=== PATIENT | female | born 1950 | race Caucasian/White ===

== ENCOUNTER 2021-12-10 09:48 | Outpatient (CLI) | payer MEDICARE, BC, SELFPAY ==
--- OUTSIDE RECORDS SUMMARY | 2021-12-10 09:56 | XMS_ITS | Encounter Summary ---
:1950 Author Organization [facility] Address [address] [place] [address] Care Team Providers Name Role Phone Unavailable Primary Care Provider Unavailable Reason for Referral Outpatient (Routine) - Closed Specialty Diagnoses / Referred By Referred To Cont act Procedures Contact Gastroenterology and Diagnoses [facility]creas [facility] Adriane [address] [place] [address] Referral ID Status Reason Start Date Expiration Date Visits Requ ested Visits Authorized [id number] Closed 06/03/2021 06/03/2022 1 1 ECT MANAGEMENT ADVISOR Encounter Details Date Type Department Care Team Description 06/03/2021 [facility] reas Disease AND CLINICS Adriane Aguilar (HCC) (Primary Dx) [address] [facility] [address] [place] [address] [place], [place] [phone] Social History Tobacco Use Types Packs/Day Years Used Date Smoking Tobacco: Never Assessed Sex Assigned at Date Recorded Not on file documented as of this encounter Plan of Treatment Scheduled Referrals Name Type Priority Associated Order Schedule Diagnoses Gastroenterology & Outpatient Routine Pancreas Disease Expec miya: Hepatology Referral Referral (HCC) 06/03/19 (Approximate), Expires: 08/31/2022 documented as of this encounter Visit Diagnoses Diagnosis Pancreas Disease - Primary documented in this encounter
[2021-12-10 11:10] LABS: Cholesterol* 193 mg/dL (90-199); HDL Cholesterol* 66 mg/dL (>=50); LDL Cholesterol Calculated 99 mg/dL (<100); Triglycerides* 139 mg/dL (40-149)
[2021-12-10 11:50] LABS: Vitamin D 25 Hydroxy* 55 ng/mL (30-80)
== END 2021-12-10 09:49 | disposition home or self-care (01) ==
LOC: NFLDREF 09:49
PROVIDERS: PCP Family Medicine; Visit Provider Family Medicine
DX: M85.80 Other specified disorders of bone density and structure, unspecified site (principal); Z13.6 Encounter for screening for cardiovascular disorders
CPT/HCPCS: 80061; 82306

== ENCOUNTER 2021-12-15 10:50 | Outpatient (CLI) | payer MEDICARE, BC, SELFPAY ==
--- OUTSIDE RECORDS SUMMARY | 2021-12-15 10:56 | XMS_ITS | Encounter Summary ---
:1950 Author Organization [facility] Address [address] [place] [address] Care Team Providers Name Role Phone Unavailable Primary Care Provider Unavailable Encounter Details Date Type Department Care Team Description 06/03/2021 Ancillary Procedure Department of Gastroenterology Social History Tobacco Use Types Packs/Day Years Used Date Smoking Tobacco: Never Assessed Sex Assigned at Date Recorded Not on file documented as of this encounter Plan of Treatment Not on filedocumented as of this encounter Procedures Procedure Name Priority Date/Time Associated Comments Diagnosis GASTROENTEROLOGY IMAGE Routine 06/03/2021 12:05 R esults for this EXAM AM TURNING MACHINE OPERATOR HELPER procedure are i n the results section. documented in this encounter Results Unspecified-Gastroenterology Image Exam (06/03/2021 12:05 AM TURNING MACHINE OPERATOR HELPER) Specimen (Source) Anatomical Location Collection Method / Collectio n Time Received Time / Laterality Volume Narrative IIMS - 06/03/2021 12:13 PM TURNING MACHINE OPERATOR HELPER This order has been created and auto-finalized to support the import of images acquired without order. The clini [place] documentation to support these images can be found on the encounter lyubov t produced images. Provider Not In System IMG NON RAD IMAGING PROCEDUR ES Performing Organization Address City/State/ZIP Code Phon e Number IIMS IIMS NA documented in this encounter Visit Diagnoses Not on filedocumented in this encounter
--- OUTSIDE RECORDS SUMMARY | 2021-12-15 10:56 | XMS_ITS | Clinical Summary ---
:1950 Author Organization [facility] [place] [address] Care Team Providers Name Role Phone Ruby Chiang MD Primary Care Provider Unavailable Allergies Active Allergy Reactions Severity Noted Date Comments Sulfa (Sulfonamide Antibiotics) 7 rash from a sulfa cream Medications Medication Sig Dispensed Refills Start Date End Date Status NEXIUM 40 MG CAP take 1 capsule 90 3 04/18/2007 Active (40 mg) by oral route once daily cyclobenzaprine Take 1 tablet by 36 tablet 2 05/17/2010 Active (FLEXERIL) 10 mg tablet mouth every 8 hours if needed for Muscle Spasm. miscellaneous medical As directed. 1 Units 0 11/15/2010 Active supply (CERVICAL Diaz cervical TRACTION) [facility] home traction Ciclopirox 0.77 % Apply to affected 1 jar 1 03/13/2013 Active gelIndications: toenails for 6-12 Dermatophytosis of nail months once daily. sertraline (ZOLOFT) 50 Take 1 tablet by 0 05/07/2015 Active mg tablet mouth once daily. capsaicin-methyl Apply topically 10 mL 0 05/07/2015 Active bradley-menthol (NEW to affected TEROCIN) 0.025-25-10 % area(s). 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 07/23/2008 Bursitis of hip 07/23/2008 Onychomycosis 04/08/2008 Immunizations Name Administration Dates Next Due AMB Influenza, IIV3 (Age >=3 years)(Flu Clinic Only) 012 Social History Tobacco Use Types Packs/Day Years Used Date Never Smoker Smokeless Tobacco: Never Used Tobacco Cessation: Counseling Given: Yes Alcohol Use Standard Drinks/Week Comments Not Asked 0 (1 standard drink = 0.6 oz pure alcoho l) Sex Assigned at Date Recorded Not on file Obstetrics History Last Filed Vital Signs Vital Sign Reading Time Taken Comments Blood Pressure 136/73 05/07/2015 2:20 PM METAL HANGING HELPER Pulse 98 05/07/2015 2:20 PM METAL HANGING HELPER Temperature 36.7 ??C (98 ??F) 05/07/2015 2:20 PM METAL HANGING HELPER Respiratory Rate - - Oxygen Saturation 98% 05/07/2015 2:20 PM METAL HANGING HELPER Inhaled Oxygen Concentration - - Weight 76.8 kg (169 lb 6 oz) 05/07/2015 2:20 PM METAL HANGING HELPER Height 168 cm (5' 6.14) 05/07/2015 2:20 PM METAL HANGING HELPER Body Mass Index 27.22 05/07/2015 2:20 PM METAL HANGING HELPER Plan of Treatment Health Maintenance Due Date Last Done Comments COVID-19 vaccine series (#1) 1950 Tdap 1960 Depression screening for age 12+ 1961 Hepatitis C screening for age 18-79 07/01/1967 Tetanus booster 1969 Lipids for age 45-75 1994 Zoster (shingles) series for age 50+ 07/01/1999 (1 of 2) Mammogram for age 45-75 06/03/2009 06/03/2008, 02/27/2007 DEXA/DXA scan for age 65+ 2014 Pneumococcal series for age 65+ (1 - 2014 PCV) BMI (ht and wt on same day) for age 0105/07/2016 05/07/2015 18+ Influenza for age 65+ 12/16/2021 02/13/2012 Colonoscopy through age 75 03/22/2022 03/22/2012, 2, 03/13/2007 Results Not on filefrom Last 3 Months Insurance Payer Benefit Plan / Subscriber ID Effective Dates Phone Addre ss Type Group MEDICARE - PB MEDICARE PB [id number] 2014-Present ATTN : CLAIMS USE ONLY ONLY [address] [place] [address] [employer] [place] [id number] 2015-Present [address] [address] [place] [address] Care Teams Bankruptcy Judge Relationship Specialty Start Date End Date Ruby Chiang MD PCP - General Family Practice 11/30/11
--- OUTSIDE RECORDS SUMMARY | 2021-12-15 10:56 | XMS_ITS | Encounter Summary ---
:1950 Author Organization [facility] Address [address] [place] [address] Care Team Providers Name Role Phone Unavailable Primary Care Provider Unavailable Reason for Visit Reason Comments Pancreas Previsit Preparation Encounter Details Date Type Department Care Team Description 06/07/2021 Clinical Division of Nely Guardado Pancreas; Previ sit Communication [facility] [address] [facility] [address] [place] [address] [place] [address] Social History Tobacco Use Types Packs/Day Years Used Date Smoking Tobacco: Never Assessed Sex Assigned at Date Recorded Not on file documented as of this encounter Plan of Treatment Not on filedocumented as of this encounter Visit Diagnoses Not on filedocumented in this encounter
--- OUTSIDE RECORDS SUMMARY | 2021-12-15 10:56 | XMS_ITS | Encounter Summary ---
:1950 Author Organization [facility] Address [address] [place] [address] Care Team Providers Name Role Phone Unavailable [...] Associated Comments Diagnosis GASTROENTEROLOGY IMAGE Routine 06/03/2021 12:00 R esults for this EXAM AM GROUP LEADER SEMICONDUCTOR TESTING procedure are i n the results section. documented in this encounter Results Unspecified-Gastroenterology Image Exam (06/03/2021 12:00 AM GROUP LEADER SEMICONDUCTOR TESTING) Specimen (Source) Anatomical Location Collection Method / Collectio n Time Received Time / Laterality Volume Narrative IIMS - 06/03/2021 12:05 PM GROUP LEADER SEMICONDUCTOR TESTING This order has been created and auto-finalized [...]
--- OUTSIDE RECORDS SUMMARY | 2021-12-15 10:56 | XMS_ITS | Encounter Summary ---
:1950 Author Organization [facility] Address [address] [place] [address] Care Team Providers Name Role Phone Unavailable Primary Care Provider Unavailable Reason for Visit Reason Comments Follow-up Encounter Details Date Type Department Care Team Description 11/30/2021 Documentation Division of Gastroenterology Ladi combs, Follow-up in [facility] Ana España M.D. [address] [place] [address] [place], [place] [phone] (Wo rk) Social History Tobacco Use Types Packs/Day Years Used Date Smoking Tobacco: Never Assessed Sex Assigned at Date Recorded Not on file documented as of this encounter Progress Notes Ana Ulloa M.D. - 11/30/2021 12:04 PM CDT Ms. Craft was called today to discuss MRCP results. She is being doing well. No new symptoms or complain since I last saw her at clinics. Her MRCP showed a focal cystic lesion at the tip of the pancreatic tail demonstrating cluster of multiple small cysts with thin internal intervening septa. It measures approximately 1.8 x 1.7 x 2.1 cm previously 1.8 x 1.6 x 2.0 cm from outside dated 06/01/2021 MRI. Overall the cyst has remained stable in size and with reassuring features that favors a serous cystadenoma. Ms. Craft was re-oriented that the risk of malignancy with this type of pancreas cyst is extremely low (less than 0.1%) reason why surveillance with further imaging is not recommended. At this time, Ms. Craft is completely asymptomatic but she was oriented to contact me through the portal if shedevelops any concerning symptoms such as jaundice, unintentional weight loss, abdominal pain radiating to the back, nausea/vomiting not explained by other etiologies. All questions were addressed and answered to the best of my knowledge. Patient understood and agreed with plan documented in this encounter Plan of Treatment Not on filedocumented as of this encounter Visit Diagnoses Not on filedocumented in this encounter
--- OUTSIDE RECORDS SUMMARY | 2021-12-15 10:56 | XMS_ITS | Encounter Summary ---
:1950 Author Organization [facility] Address [address] [place] [id number] Care Team Providers Name Role Phone Unavailable Primary Care Provider Unavailable Reason for Referral MRI/CAT/PET Scan (Routine) - Closed Specialty Diagnoses / Procedures Referred By Contact Refer red To Contact Radiology Diagnoses Cyst Pancreas [facility] Abdomen MRCP without and with IV Contrast M.D. [address] [place] [phone] Referral ID Status Reason Start Date Expiration Date Visits Requ ested Visits Authorized [id number] Closed 08/30/2021 08/30/2022 1 1 Reason for Visit MRI/CAT/PET Scan (Routine) - Closed Specialty Diagnoses / Procedures Referred By Contact Refer red To Contact Radiology Diagnoses Cyst Pancreas [facility] Procedures MR Abdomen MRCP without and with IV Contrast M.D. [address] [place] [phone] Referral ID Status Reason Start Date Expiration Date Visits Requ ested Visits Authorized [id number] Closed 08/30/2021 08/30/2022 1 1 Encounter Details Date Type Department Care Team Description 11/26/2021 Hospital Encounter Department of Tuan Ulloa Radiology, Pao España M.D. [facility], in [place], [address] [place], [place] [address] [facility] [address] [place], [place] [phone] (Work) [phone] Social History Tobacco Use Types Packs/Day Years Used Date Smoking Tobacco: Never Assessed Sex Assigned at Date Recorded Not on file documented as of this encounter Medications at Time of Discharge Medication Sig Dispensed Refills Start Date End Date cholecalciferol, vitamin Daily 0 02/20/2018 D3, 25 mcg (1,000 Unit) tablet esomeprazole (NexIUM) 40 Daily 0 04/18/[address] capsule sertraline (ZOLOFT) 100 mg Take 100 mg by mouth 0 07/04/2021 tablet daily. traMADoL (ULTRAM) 50 mg Qhs as needed 0 2 tablet triamcinolone (KENALOG) Twice A Day 0 01/27/2021 0.1 % ointment valACYclovir (VALTREX) As Directed 0 07/09/2020 1000 mg tablet Vitron-C 65 mg iron- 125 Take 1 tablet by 0 06/[address] tablet mouth daily. documented as of this encounter Plan of Treatment Not on filedocumented as of this encounter Procedures Procedure Name Priority Date/Time Associated Comments Diagnosis MR ABDOMEN MRCP RAD - Routine 11/26/2021 2:02 Cyst Pancreas Results for this WITHOUT AND WITH (most inpatients PM CDT procedu re are in IV CONTRAST and all the results outpatients) section. documented in this encounter Results MR Abdomen MRCP without and with IV Contrast (11/26/2021 2:02 PM CDT) Anatomical Region Laterality Modality Abdomen, Abdominal RST LOS, Abdominal ARZ LOS, N/A Magnetic Resonance Abdominal FLA LOS Specimen (Source) Anatomical Collection Method Collection Time Re ceived Time Location / / Volume Laterality 11/26/2021 1:21 PM CDT Impressions 11/26/2021 3:08 PM CDT Similar to very slight interval increase in size of pancreatic tail cystic lesion (compared to outside MRI from 06/06/2021) demonstrate features that favor a serous cystadenoma. Narrative 11/26/2021 3:08 PM CDT EXAM: ??MR ABDOMEN MRCP WITHOUT AND WITH IV CONTRAST 3D maximum intensity projections/volume renderings were created on an independent workstation as ordered by the treating provider and rev iewed by the radiologist for biliary and pancreatic duct visualization. COMPARISON: ??Outside CT from 05/20/2021 a nd MRI from 06/01/2021. FINDINGS: Redemonstration of a focal cystic lesion at the tip of the pancreatic tail demonstrating cluster of multiple small cysts with thin internal intervening septa and wall that enhance on delayed postcontrast images. This cystic lesion measures approximately 1.8 x 1.7 x 2.1 cm (AP by transverse by craniocaudal) previously 1.8 x 1.6 x 2.0 cm from outside dated 06/01/2021 MRI. Possible tiny sidebranch IPMN versus foc al ductal ectasia at the pancreatic head (series 4 image 43). The pancreas otherwise largely savannah ins its intrinsic T1 hyperintensity and enhances homogenously. No pancreatic ductal dilat ion. Diffuse hepatic steatosis. No suspicious hepatic lesion. Spleen measures up to 13.6 cm in craniocaudal dimension and demonstrates a suspected small inferior pole hemangioma. The gallbladder, adrenal glands, and kidneys are unremark able. No biliary ductal dilation. Moderate to large hiatal hernia. No bowel obstruction, where imag ed. Colonic diverticulosis without diverticulitis. No suspicious lymphadenopathy. No drainable fluid collection. Procedure Note Antonio Walters D.O. - 11/26/2021 EXAM: MR ABDOMEN MRCP WITHOUT AND WITH I V CONTRAST 3D maximum intensity projections/volume renderings were created on an independent workstation as ordered by the treating provider and rev iewed by the radiologist for biliary and pancreatic duct visualization. COMPARISON: Outside CT from 05/20/2021 and MRI from 06/01/2021. FINDINGS: Redemonstration of a focal cystic lesion at the tip of the pancreatic tail demonstrating cluster of multiple small cysts with thin internal intervening septa and wall that enhance on delayed postcontrast images. This cystic lesion measures approximately 1.8 x 1.7 x 2.1 cm (AP by transverse by craniocaudal) previously 1.8 x 1.6 x 2.0 cm from outside dated 06/01/2021 MRI. Possible tiny sidebranch IPMN versus foc al ductal ectasia at the pancreatic head (series 4 image 43). The pancreas otherwise largely savannah ins its intrinsic T1 hyperintensity and enhances homogenously. No pancreatic ductal dilat ion. Diffuse hepatic steatosis. No suspicious hepatic lesion. Spleen measures up to 13.6 cm in craniocaudal dimension and demonstrates a suspected small inferior pole hemangioma. The gallbladder, adrenal glands, and kidneys are unremark able. No biliary ductal dilation. Moderate to large hiatal hernia. No bowel obstruction, where imag ed. Colonic diverticulosis without diverticulitis. No suspicious lymphadenopathy. No drainable fluid collection. IMPRESSION: Similar to very slight interval increase in size of pancreatic tail cystic lesion (compared to outside MRI from 06/06/2021) demonstrate features that favor a serous cystadenoma. Ana RAWLS MRI PROCEDURES documented in this encounter Visit Diagnoses Diagnosis Cyst Pancreas documented in this encounter Administered Medications Inactive Administered Medications - up to 3 most recent administrations Medication Order MAR Action Action Date Dose Rate Site gadobutrol injection 0.01-30 mL Given 11/26/2021 1:40 PM CDT 8 m L (GADAVIST) 0.01-30 mL, intravenous, Once in imaging, contrast, Starting on Mon11/26/21 at 1227, For 1 dose, Imaging Protocol Orders, Dose per Radiant Medication Guidelines Intrathecal doses greater than 0.25 mL not recommended. documented in this encounter
--- OUTSIDE RECORDS SUMMARY | 2021-12-15 10:56 | XMS_ITS | Encounter Summary ---
:1950 Author Organization [facility] Address [address] [place] [address] Care Team Providers Name Role Phone Unavailable Primary Care Provider Unavailable Reason for Referral Outpatient (Routine) - Closed Specialty Diagnoses / Referred By Referred To Cont act Procedures Contact Gastroenterology and Diagnoses [facility]creas [facility] Adriane [address] [place] [address] Referral ID Status Reason Start Date Expiration Date Visits Requ ested Visits Authorized [id number] Closed 06/03/2021 06/03/2022 1 1 E PRESS OPERATOR Encounter Details Date Type Department Care Team Description 06/03/2021 [facility] reas Disease AND CLINICS Adriane Aguilar (HCC) (Primary Dx) [address] [facility] [address] [place] [address] [place], [place] [phone] Social History Tobacco Use Types Packs/Day Years [...]
--- OUTSIDE RECORDS SUMMARY | 2021-12-15 10:56 | XMS_ITS | Encounter Summary ---
:1950 Author Organization [facility] Address [address] [place] [address] Care Team Providers Name Role Phone Unavailable Primary Care Provider Unavailable Reason for Referral MRI/CAT/PET Scan (Routine) - Closed Specialty Diagnoses / Procedures Referred By Contact Refer red To Contact Radiology Diagnoses Cyst Pancreas [facility] Procedures MR Abdomen MRCP without and [place] [address] Referral ID Status Reason Start Date Expiration Date Visits Requ ested Visits Authorized [id number] Closed 08/30/2021 08/30/2022 1 1 Reason for Visit Outpatient (Routine) - Closed Specialty Diagnoses / Referred By Referred To Cont act Procedures Contact Gastroenterology and Diagnoses Pancreas Disease [facility] Hepatology Adriane [address] [place] [address] Referral ID Status Reason Start Date Expiration Date Visits Requ ested Visits Authorized [id number] Closed 06/03/2021 06/03/2022 1 1 Encounter Details Date Type Department Care Team Description 08/30/2021 Comprehensive Visit Division of Aba Chatterjee M.D. [address] [place] [address] Cyst Pancreas (Primary Dx); Gastroenterology in Ana Ulloa M.D. [address] [place] [address] Pancreas Disease [place], [place] [address] [place] [address] Social History Tobacco Use Types Packs/Day Years Used Date Smoking Tobacco: Never Assessed Sex Assigned at Date Recorded Not on file documented as of this encounter Last Filed Vital Signs Vital Sign Reading Time Taken Comments Blood Pressure 135/76 08/30/2021 12:41 PM CDT Pulse 84 08/30/2021 12:41 PM CDT Temperature - - Respiratory Rate - - Oxygen Saturation - - Inhaled Oxygen Concentration - - Weight 71.1 kg (156 lb 12 oz) 08/30/2021 12:41 PM CDT Height - - Body Mass Index - - documented in this encounter Consult Notes nAa Ulloa M.D. - 08/30/2021 1:00 PM CDT Pancreas Clinic Outpatient Consultation SUBJECTIVE Shantell Craft [phone] DATE OF CONSULTATION: 08/30/2021 REFERRING PHYSICIAN: Lauren Chatterjee M.D. CHIEF COMPLAINT/REASON FOR CONSULT Cyst Pancreas [K86.2] HISTORY OF PRESENT ILLNESS Ms. Craft is a 71 year old female who is being seen in pancreas clinic today after found incidentally with a pancreatic cyst. Patient is overall healthy with past medical history pertinent for OA, colon polyps and HTN. Ms. Craft was found on routine labs 04/2021 with low hemoglobin level (6.5 mg/dl ) for which she underwent workup outside [facility] including a CT and MRI where a lobulated multi cyst at the tail of the pancreas measuring 1.8 cm was identified with features consistent with serous cystic neoplasm. Shedenies prior history of acute pancreatitis. She denies itching, yellow discoloration of the skin, abdominal pain, nausea, vomits, weight loss. No family history of pancreatic cancer. Lifelong non-smoker. Drinks socially. Regarding her microcytic anemia she was completely asymptomatic when she was found with low hemoglobin level. She denies any sign or symptoms suggestive of previous or active GI bleeding such as black stools, bright red blood per rectum, hematemesis. She also denies changes in her normal bowel habits,thin stools, nausea, vomiting, abdominal pain, weight loss. EGD 05/27/2021 essentially unremarkable with negative duodenum as well as gastric biopsies. She has history of colon polyps, undergoing surveillance every 3 years with last colonoscopy done last year were apparently benign polyps were removed.She was evaluated by a local filler and trimmer and after blood workup was performed she was told that everything was normal and was prescribed oral iron. Last CBC with hemoglobin on increasing trend to approximately 11 mg/dl. REVIEW OF SYSTEMS All other systems reviewed and negative unless mentioned in the history of present illness, patient provided information verbally HISTORY REVIEW The following portions of the patient's history were reviewed verbally allergies, current medications, family history, medical history, social history and surgical history OBJECTIVE Vital Signs: BP 135/76 Pulse 84 Wt 71.1 kg PHYSICAL EXAMINATION General: Sitting comfortably in no acute distress. Psychiatric: Awake, alert and oriented. Skin: No obvious rashes. Eyes: Sub conjunctiva pink. No icterus Mouth: Moist mucous membranes Abdomen: Soft, nontender and nondistended. No hepatosplenomegaly. Extremities: No clubbing, cyanosis, or edema ASSESSMENT / PLAN 1. Pancreas cyst Patient found incidentally with a pancreatic cyst while undergoing anemia workup. MRI/MRCP 06/01/2021one outside [place] showed a lobulated multi cyst at the tail of the pancreas measuring 1.8 cm with features consistent with serous cystic neoplasm. She denied history of acute pancreatitis, jaundice, abdominal pain, nausea, vomiting, pruritis, weight loss. Non-diabetic. No family history of pancreatic cancer. Lifelong non-smoker. Drinks socially. Patient is completely asymptomatic with no worrisome signs/sympotms. She was explained that if this pancreatic cyst is a true serous cystadenoma (SCA) then the risk of of malignancy is extremely low (less than 0.1%) reason why surveillance with further imaging is not recommended. Will repeat MRCP here at [place] in mid- which is approximately 6 months after her last MR to further evaluate any interval change and to further confirm if there are classicimaging finding consistent with SCA. If SCA is confirmed then the patient was explained that no further surveillance is indicated. If not classic features of SCA then we can consider EUS +/- FNA to further characterize the cyst and establish surveillance. Will follow up results and contact the patientby phone once they are available. 2. Microcytic Anemia Patient completely asymptomatic when she was found with low hemoglobin level. She denied any sign orsymptoms suggestive of previous or active GI bleeding such as black stools, bright red blood per rectum, hematemesis. She also denied alarming symptoms such as changes in her normal bowel habits, thin stools, abdominal pain, weight loss. EGD 05/27/2021 essentially unremarkable findings with negative duodenum as well as gastric biopsies. She has history of colon polyps, undergoing surveillance every 3 years with last colonoscopy done last year were apparently benign polyps were removed. She was evaluated by a local filler and trimmer and after blood workup was performed she was told that everything was normal and was prescribed oral iron. Last CBC with hemoglobin on increasing trend to approximately 11 mg/dl. She will have follow up with ther filler and trimmer next weekend with new labs. Case seen with Dr. Mchugh. BILLIN minutes spent in a combination of the following activities: visit with the patient; reviewing records; interpreting test results; discussing plans with the patient and/or family; discussingand coordinating care with other team members and communicating / reviewing care plan with local provider(s). Ana Ulloa M.D. 08/30/2021 Associated attestation - Mynor Mchugh M.D. - 08/30/2021 3:27 PM CDT [facility] Pancreas Clinic Outpatient Consultation Date of Consultation: 08/30/2021 Referring Physician: Lauren Chatterjee M.D. This is a supervisory note for Ana Ulloa M.D. . I have reviewed the available records, interviewed and examined the patient. I agree with the chief complaint, history of present illness,past medical and surgical history, medications, physical examination, and impression/plan as outlined in Ana Ulloa M.D. 's note dated today. Chief Complaint/Reason for Consult: Cyst Pancreas [K86.2] History of Present Illness: Ms. Craft is a very pleasant 71 y.o. female who was incidentally found to have a lobulated multi-cystic lesion in the tail the pancreas measuring 1.8 cm. The imaging features are highly suggestive of aserous cystic neoplasm. She denies prior history of acute pancreatitis or symptoms of pancreatic related disease. She denies a family history of pancreas cancer. Of note, the patient has been noted to have iron deficiency anemia for which she has been seeing a filler and trimmer. She was started on iron supplementation and had a recent endoscopic workup that was negative. Assessment/Plan: #1 Cyst Pancreas #2 Pancreas Disease Ms. Craft is a very pleasant 71 y.o. female who presents for evaluation and management of Cyst Pancreas [K86.2]. We discussed that imaging was most consistent with a serous cystadenoma she remains asymptomatic at this time. Recommendations: Plan for repeat MRI/MRCP 6 months from prior (due around November 2021). If that is stable, would recommend no further workup if the imaging is classic for a serous cystadenoma. If imaging is not diagnostic for a serous cystadenoma, then may consider surveillance. She will follow-up with her filler and trimmer regarding her anemia. Follow up recommendations: Telephone call with Dr. Varela after MRI/MRCP. BILLIN minutes spent in a combination of the following activities: visit with the patient; reviewing records; interpreting test results; discussing plans with the patient and/or family; discussingand coordinating care with other team members and communicating / reviewing care plan with local provider(s). All of the patient's questions were addressed during this visit. Mynor Mchugh M.D. 08/30/2021 documented in this encounter Plan of Treatment Scheduled Orders Name Type Priority Associated Diagnoses Order S chedule Creatinine with Estimated Lab Routine Cyst Pancreas E xpected: 11/28/2022 GFR (Approximate), Expires: 11/30/2022 documented as of this encounter Results MR Abdomen MRCP without [...] features that favor a serous cystadenoma. Ana Ulloa M.D. [facility] MRI PROCEDURES documented in this encounter Visit Diagnoses Diagnosis Cyst Pancreas - Primary Pancreas Disease Cyst Pancreas documented in this encounter
--- OUTSIDE RECORDS SUMMARY | 2021-12-15 10:56 | XMS_ITS | Encounter Summary ---
:1950 Author Organization [facility] Address [address] [place] [address] Care Team Providers Name Role Phone Unavailable Primary Care Provider Unavailable Reason for Visit Reason Comments Pancreas Cyst Previsit Preparation Encounter Details Date Type Department Care Team Description 08/30/2021 Documentation Division of Ricki Gerard (Cyst ); Gastroenterology in Lashay España, Previsit Preparation [place], [place] Ph.D., R.N. [address] [facility] [address] [place] [address] [place], [place] [phone] [address] Social History Tobacco Use Types Packs/Day Years Used Date Smoking Tobacco: Never Assessed Sex Assigned at Date Recorded Not on file documented as of this encounter Progress Notes Lashay Gerard, Ph.D., R.N. - 08/30/2021 11:59 PM CDT PANCREAS PRE-CLINIC VISIT NOTE #: [phone] Date of : 1950 (71 y.o.) Name: Shantell Craft Pancreas Provider/Appointment Date Dr. Chel Guardado on August 30, 2021 at 1:00 p.m. Indication: Pancreas Cyst History: I spoke with Shantell Craft on 08/05/2021 to review her health history and available records prior to her upcoming visit in the Pancreas Clinic. Shantell's hemoglobin was found to be < 6.0 during a pre-op evaluation. Upper endoscopy and imaging did not identify a cause for her anemia. CT imaging revealed a cystic lesion in her pancreas.She denies any GI or abdominal symptoms other than noting some softer stools in past months and loose stools since starting an iron supplement. She is keen to know more about her pancreas cyst and what type of care she will need moving forward. Is the patient provider referred? Yes, Dr. Lauren Chatterjee Is this visit a second opinion (i.e. have they already seen a make up worker?) No Pancreas or liver biopsy/FNA/brushing: None Imaging: Requested? Yes Received? Yes, in [facility] Interpretation needed? Pending team review 06/01/2021 MRI Abdomen w/wo Contrast IMPRESSION: 1.8 cm lobulated multi cystic lesion in the pancreatic tail with imaging features most consistent with serous cystic neoplasm. Mild hepatic steatosis. 05/20/2021 CT Abdomen Pelvis w/ Contrast IMPRESSION: Subtle area of decreased attenuation within the pancreatic tail measuring 1.6 cm. 6.3 cmhiatal hernia. Extensive sigmoid diverticulosis without diverticulitis. Mild hepatic steatosis. Prior procedures within 18 months: EGD 05/27/2021: Regular Z-line, 5 cm hiatal hernia, no evidence of erosion, salmon colored mucosa, stricture or ulcerations in the esophagus. Mildly erythematous mucosa w/o bleeding in the prepyloric region of stomach. Biopsied. Entire duodenum normal. Biopsied. Multiple small semi-sessile polyps with no bleeding and no stigmata of recent bleeding found in the gastric body. Labs: 05/13/2021 Alkaline Phosphatase: 82 U/L AST: 22 U/L ALT: 14 U/L Bilirubin: 0.4 mg/dL Creatinine: 0.7 mg/dL GFR:> 60 Ca 19-9: Not assessed Prior abdominal surgery: None Past medical history: GERD, osteopenia, colonic polyps (last colonoscopy 01/2021), osteoarthritis, depression, primary hypertension, persistent lymphocytosis, acute anemia, tubular adenoma of colon. Personal history of pancreaticobiliary benign or malignant disease (y/n) and if so, please list: None Use of blood thinners: None Severe cardiac or pulmonary disease (Pacemaker?): None Current symptoms: None documented in this encounter Plan of Treatment Not on filedocumented as of this encounter Visit Diagnoses Not on filedocumented in this encounter
--- OUTSIDE RECORDS SUMMARY | 2021-12-15 10:56 | XMS_ITS | Clinical Summary ---
:1950 Author Organization [facility] Address [address] [place] [address] Care Team Providers Name Role Phone Unavailable Primary Care Provider Unavailable Source Comments Patient records contain information from all sites at [facility]. For routine questions regarding patient records, call [phone] during business hours, M-F 8:00 AM - 5:00 PM Central Time. Record requests for emergency care only can be directed to [phone] at any time.[facility] Allergies Active Allergy Reactions Severity Noted Date Comments Sulfa (Sulfonamide Antibiotics) Rash High 7 rash from a sulfa cream Medications Medication Sig Dispensed Refills Start Date End Date Status valACYclovir (VALTREX) As Directed 0 07/09/2020 Active 1000 mg tablet triamcinolone (KENALOG) Twice A Day 0 01/27/2021 Active 0.1 % ointment traMADoL (ULTRAM) 50 mg Qhs as needed 0 05/14/2021 Active tablet sertraline (ZOLOFT) 100 Take 100 mg by 0 07/04/2021 Active mg tablet mouth daily. Vitron-C 65 mg iron- Take 1 tablet by 0 06/02/[address] tablet mouth daily. esomeprazole (NexIUM) Daily 0 04/18/[address] capsule cholecalciferol, Daily 0 02/20/2018 Ac tive vitamin D3, 25 mcg (1,000 Unit) tablet Encounters Date Type Specialty Care Team Description 11/30/2021 Documentation Gastroenterology and Vikram Ulloa ow-up Hepatology Ana España M.D. 11/26/2021 Hospital Encounter Radiology Laila, Cyst Pa ncrananda España M.D. from Last 3 Months Social History Tobacco Use Types Packs/Day Years Used Date Smoking Tobacco: Never Assessed Sex Assigned at Date Recorded Not on file Last Filed Vital Signs Vital Sign Reading Time Taken Comments Blood Pressure 135/76 08/30/2021 12:41 PM CDT Pulse 84 08/30/2021 12:41 PM CDT Temperature - - Respiratory Rate - - Oxygen Saturation - - Inhaled Oxygen Concentration - - Weight 71.1 kg (156 lb 12 oz) 08/30/2021 12:41 PM CDT Height - - Body Mass Index - - Plan of Treatment Health Maintenance Due Date Last Done Comments Bone Density Scan (Osteoporosis 1950 Screen) CT Colonography 1950 Cologuard 1950 Colonoscopy 1950 Colorectal Cancer Screening 1950 FIT 1950 Fasting Glucose for Diabetes 1950 Screening Hepatitis C Screening 1950 Mammogram 1950 DTaP,Tdap,and Td Vaccines (2 - Td 06/23/2020 06/23/2010, or Tdap) COVID-19 Vaccine (2 - Pfizer 02/11/2021 01/21/2021 series) Depression Screening (Annual 04/17/2021 PHQ-2) Influenza Vaccine (#1) 2022 01/13/2021, 01/24/2020, 01/21/2020, Additional history exists Pneumococcal vaccine (65+ years) Completed 03/23/2016, 04/2014 Zoster Vaccines Completed 12/19/2018, 10/15/2018, 10/08/2018, Additional history exists Fall Risk Screen (Annual) Completed 11/26/2021 Procedures Procedure Name Priority Date/Time Associated Comments Diagnosis MR ABDOMEN MRCP RAD - Routine 11/26/2021 2:02 Cyst Pancreas Results for this WITHOUT AND WITH (most inpatients PM CDT procedu re are in IV CONTRAST and all the results outpatients) section. from Last 3 Months Results MR Abdomen MRCP without and with [...] favor a serous cystadenoma. Ana Ulloa M.D. IMG MRI PROCEDURES from Last 3 Months Insurance Payer Benefit Plan Subscriber ID Effective Phone Address Typ e / Group Dates MEDICARE MEDICARE A [id number] 2014-Prese [address] [place] [address] [facility] [id number] 2015-Prese [phone] [address] Indemnity [employer] [address] [place] [address] [phone] (Work)
[2021-12-15 13:08] LABS: Albumin* 4.3 g/dL (3.3-5.0); Chloride* 104 mmol/L (96-114); Sodium* 141 mmol/L (135-149)
[2021-12-15 13:11] LABS: Alanine Aminotransferase* 21 U/L (4-35); Alkaline Phosphatase* 96 U/L (40-150); Aspartate Amino Transferase* 22 U/L (12-35); Bilirubin Total* 0.6 mg/dL (0.1-1.5); Blood Urea Nitrogen* 21 mg/dL (7-30); Carbon Dioxide* 27 mmol/L (20-32); Creatinine* 0.8 mg/dL (0.5-1.5); Estimated Glomerular Filt Rate 78 ml/min; Glucose* 94 mg/dL (60-115); Total Protein* 7.2 g/dL (6.0-8.3)
[2021-12-15 13:24] LABS: Ferritin* 34.3 ng/mL (11.1-264.0)
== END 2021-12-15 10:51 | disposition home or self-care (01) ==
PROVIDERS: PCP Family Medicine; Visit Provider Family Medicine
DX: Z01.419 Encounter for gynecological examination (general) (routine) without abnormal findings (principal); D50.9 Iron deficiency anemia, unspecified; K86.9 Disease of pancreas, unspecified
CPT/HCPCS: 80053; 82728

== ENCOUNTER 2022-04-05 14:25 | Outpatient (CLI) | payer MEDICARE, BC, SELFPAY ==
--- NOTE | 2022-04-05 14:40 | CRLHL7_ITS ---
For Patients: As a result of the Century Cures Act, medical imaging exams and procedure reports are released immediately into your electronic medical record. You may view this report before your referring provider. If you have questions, please contact your health care provider. BILATERAL SCREENING MAMMOGRAM WITH COMPUTER-AIDED DETECTION TECHNIQUE: CC and MLO views were obtained. These mammographic images have been obtained using full-field digital technique. These mammographic images were interpreted with the benefit of computer-aided detection. COMPARISON FILM: 03/18/21, 03/16/20, 03/08/19. FINDINGS: There are scattered areas of fibroglandular density IMPRESSION: There is no radiographic evidence for malignancy. ASSESSMENT: BI-RADS Category 1: Negative RECOMMENDATION: Routine screening mammogram in 1 year. A lay language report of this examination will be provided to the patient. Job Martinez M.D. Diagnostic Radiologist [email or web address] [place]/Dictated by: Job Martinez MD @ 04/06/2022 9:19:00 AM (Electronically Signed)
== END 2022-04-05 14:26 | disposition home or self-care (01) ==
LOC: MAMMO 14:26
PROVIDERS: PCP Family Medicine; Visit Provider Family Medicine
DX: Z12.31 Encounter for screening mammogram for malignant neoplasm of breast (principal)
CPT/HCPCS: 77067

== ENCOUNTER 2022-05-30 13:12 | Outpatient (CLI) | payer MEDICARE, BC, SELFPAY ==
[2022-05-30 11:21] LABS: Albumin* 4.3 g/dL (3.3-5.0); Chloride* 107 mmol/L (96-114); Potassium* 4.2 mmol/L (3.6-5.1); Sodium* 140 mmol/L (135-149)
[2022-05-30 11:23] LABS: Cholesterol* 170 mg/dL (90-199); Creatinine* 0.7 mg/dL (0.5-1.5); Estimated Glomerular Filt Rate 92 ml/min; Vitamin D 25 Hydroxy* 52 ng/mL (30-80)
[2022-05-30 11:24] LABS: Alanine Aminotransferase* 23 U/L (4-35); Alkaline Phosphatase* 76 U/L (40-150); Aspartate Amino Transferase* 22 U/L (12-35); Bilirubin Total* 0.7 mg/dL (0.1-1.5); Blood Urea Nitrogen* 20 mg/dL (7-30); Carbon Dioxide* 29 mmol/L (20-32); Glucose* 89 mg/dL (60-115); Triglycerides* 134 mg/dL (40-149)
[2022-05-30 11:25] LABS: Calcium* 9.1 mg/dL (8.4-10.6); HDL Cholesterol* 61 mg/dL (>=50); LDL Cholesterol Calculated 82 mg/dL (<100)
[2022-05-30 11:42] LABS: Ferritin* 23.2 ng/mL (11.1-264.0)
== END 2022-05-30 13:13 | disposition home or self-care (01) ==
PROVIDERS: PCP Family Medicine; Visit Provider Family Medicine
DX: D50.9 Iron deficiency anemia, unspecified (principal); M85.80 Other specified disorders of bone density and structure, unspecified site; K86.9 Disease of pancreas, unspecified
CPT/HCPCS: 80053; 80061; 82306; 82728

== ENCOUNTER 2022-07-20 09:45 | Day surgery (SDC) | payer MEDICARE, BC, SELFPAY ==
[2022-07-20] MEDS: SODIUM CHLORIDE 0.9 % (FLUSH) 10 ML SYRINGE IVF (10:00)
[2022-07-20] MEDS: TETRACAINE 0.5% OPHTH 1 DROP EYE-RIGHT ×2 (10:07→10:11)
[2022-07-20] MEDS: KETOROLAC OPHTH 0.5% 1 DROP EYE-RIGHT ×3 (10:10→10:17)
[2022-07-20 10:15] VITALS: BP 138/74; PULSE 79; RESP 18; TEMP 36.6; O2SAT 97; BMI 25.7
--- NOTE | 2022-07-20 10:18 | SUR.PREOP ---
Patient provided home covid negative results to RN.
--- NOTE | 2022-07-20 10:19 | SUR.PREOP ---
The eye drops brought by the patient (Ketorolac and Prednisolone) are examined and I have determined they are labeled by the patient's pharmacy for this patient as prescribed by the surgeon. The bottles are intact, recently obtained and appear to be correct.
[2022-07-20] MEDS: TETRACAINE 0.5% OPHTH 2 DROP EYE-RIGHT (11:11)
--- NOTE | 2022-07-20 11:15 | W.ANESCHARGE ---
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
[2022-07-20] MEDS: BALANCED SALT IRRIG SOLN 15 ML EYE-RIGHT (11:16)
[2022-07-20 11:45] VITALS: BP 141/81; PULSE 71; RESP 20; TEMP 36.2; O2SAT 97
--- NOTE | 2022-07-20 11:52 | W.PM.OPTPROC ---
Procedure Note Date of procedure: 07/20/22 Will [facility] bill your pro fee for this procedure?: Yes Procedure Description: SURGEON: Natalee Cuadra MD PREOPERATIVE DIAGNOSIS: Nuclear sclerotic cataract, right eye. POSTOPERATIVE DIAGNOSIS: Nuclear sclerotic cataract, right eye. NAME OF OPERATION: Phacoemulsification of cataract with posterior chamber intraocular lens implantation in the right eye. ANESTHESIA: Topical. ESTIMATED BLOOD LOSS: Less than 2 cc. COMPLICATIONS: None. PATHOLOGY SPECIMEN: None. INDICATIONS: See consult note for details. The risks, benefits and alternatives of the procedure were explained to the patient, who elected to proceed and signed informed consent to do so. PROCEDURE: The patient was brought to the pre-holding area where the right eye was identified as the operative eye. I placed my initials above this eye. The patient received eye drops consisting of 0.5% tetracaine, 1% tropicamide, 10% phenylephrine, and 0.5% ketorolac. The patient was then brought to the operating room where the right eye was again identified as the operative eye. The eye was prepped with Betadine and draped in the usual sterile ophthalmic fashion. A #15 super-sharp blade was used to create a paracentesis site. 1% non-preserved intracameral lidocaine was injected into the anterior chamber. Endocoat was injected into the anterior chamber. A 2.4 mm keratome was used to create a three-plane self-sealing incision 1 mm anterior to the temporal limbus. A cystotome was used to create an anterior capsular leaflet. The Utrata forceps were used to extend this to form a continuous curvilinear capsulorrhexis. Hydrodissection was performed. The cataract was removed with phacoemulsification using the [id number] technique. The irrigation and aspiration tip was used to remove the remaining cortex. Healon was injected into the capsular bag. An JAGRUTI ZCB00 intraocular lens of 20.5 diopters was injected into the capsular bag. The irrigation and aspiration tip was used to remove the remaining viscoelastic. Balanced salt solution on a cannula was used to hydrate the wound, and the wound was found to be watertight. The pupil was noted to be round. DISPOSITION: The patient was taken to the recovery room and discharged to home in stable condition. The patient was instructed to call me or go to the emergency department with any sudden change, including dramatic loss of vision, severe pain in the eye or eyebrow region, nausea, or vomiting. The patient will follow up in the clinic tomorrow morning.
== END 2022-07-20 12:11 | disposition home or self-care (01) ==
PROVIDERS: PCP Family Medicine; Visit Provider Ophthalmology
PROC: (CPT 66984; principal; 2022-07-20 09:45)
DX: H25.11 Age-related nuclear cataract, right eye (principal)
CPT/HCPCS: 66984; 00142; 99100; A9270; J2250; J3010; V2632

== ENCOUNTER 2022-08-03 11:41 | Day surgery (SDC) | payer MEDICARE, BC, SELFPAY ==
--- NOTE | 2022-08-03 11:53 | SUR.PREOP ---
Patient provided home covid negative results to RN.
[2022-08-03] MEDS: TETRACAINE 0.5% OPHTH 1 DROP EYE-LEFT ×2 (12:01→12:08)
[2022-08-03] MEDS: KETOROLAC OPHTH 0.5% 1 DROP EYE-LEFT ×3 (12:06→12:21)
[2022-08-03 12:07] VITALS: BP 135/86; PULSE 75; RESP 16; TEMP 36.6; O2SAT 98
[2022-08-03 12:18] VITALS: BMI 25.8
[2022-08-03] MEDS: SODIUM CHLORIDE 0.9 % (FLUSH) 10 ML SYRINGE IVF (12:25)
--- NOTE | 2022-08-03 12:37 | W.ANESCHARGE ---
Anesthesia Charges Start Date/Time Anesthesia Start Date: 08/03/22 Anesthesia Start Time: 12:42 Stop Date/Time Anesthesia Stop Date: 08/03/22 Anesthesia Stop Time: 13:21 Summary Extremes of Age - Over 70 or under 1: MDA
[2022-08-03] MEDS: TETRACAINE 0.5% OPHTH 2 DROP EYE-LEFT (12:45)
--- NOTE | 2022-08-03 12:45 | P.ANES_ITS ---
Anesthesia Charges Start Date/Time Anesthesia Start Date: 08/03/22 Anesthesia Start Time: 12:42 Stop Date/Time Anesthesia Stop Date: 08/03/22 Summary Extremes of Age - Over 70 or under 1: KAYAK MAKER
[2022-08-03] MEDS: BALANCED SALT IRRIG SOLN 15 ML EYE-LEFT (12:52)
[2022-08-03 13:33] VITALS: BP 139/71; PULSE 71; RESP 16; TEMP 37.2; O2SAT 98
--- NOTE | 2022-08-03 14:49 | P.OPTPRC_ITS ---
Procedure Note Date of procedure: 08/03/22 Will [facility] bill your pro fee for this procedure?: Yes Procedure Description: SURGEON: Natalee Cuadra MD PREOPERATIVE DIAGNOSIS: Nuclear sclerotic cataract, left eye. POSTOPERATIVE DIAGNOSIS: Nuclear sclerotic cataract, left eye. NAME OF OPERATION: Phacoemulsification of cataract with posterior chamber intraocular lens implantation in the left eye. ANESTHESIA: Topical. ESTIMATED BLOOD LOSS: Less than 2 cc. COMPLICATIONS: None. PATHOLOGY SPECIMEN: None. INDICATIONS: See consult note for details. The risks, benefits and alternatives of the procedure were explained to the patient, who elected to proceed and sign ed informed consent to do so. PROCEDURE: The patient was brought to the pre-holding area where the left eye was identified as the operative eye. I placed my initials above this eye. The patient received eye drops consisting of 0.5% tetracaine, 1% tropicamide, 10% phenylephrine, and 0.5% ketorolac. The patient was then brought to the operating room where the left eye was again identified as the operative eye. The eye was prepped with Betadine and draped in the usual sterile ophthalmic fashion. A #15 super-sharp blade was used to create a paracentesis site. 1% non-preserved intracameral lidocaine was injected into the anterior chamber. Endocoat was injected into the anterior chamber. A 2.4 mm keratome was used to create a three-plane self-sealing incision 1 mm anterior to the temporal limbus. A cystotome was used to create an anterior capsular leaflet. The Utrata forceps were used to extend this to form a continuous curvilinear capsulorrhexis. Hydrodissection was performed. The cataract was removed with phacoemulsification using the [id number] technique. The irrigation and aspiration tip was used to remove the remaining cortex. Healon was injected into the capsular bag. An JAGRUTI ZCB00 intraocular lens of 21.5 diopters was injected into the capsular bag. The irrigation and aspiration tip was used to remove the remaining viscoelastic. Balanced salt solution on a cannula was used to hydrate the wound, and the wound was found to be watertight. The pupil was noted to be round. DISPOSITION: The patient was taken to the recovery room and discharged to home in stable condition. The patient was instructed to call me or go to the emergency department with any sudden change, including dramatic loss of vision, severe pain in the eye or eyebrow region, nausea, or vomiting. The patient will follow up in the clinic tomorrow morning.
== END 2022-08-03 13:37 | disposition home or self-care (01) ==
LOC: OR 11:41
PROVIDERS: PCP Family Medicine; Visit Provider Ophthalmology
PROC: (CPT 66984; principal; 2022-08-03 11:45)
DX: H25.12 Age-related nuclear cataract, left eye (principal)
CPT/HCPCS: 66984; 00142; 99100; A9270; J2250; J3010; V2632

== ENCOUNTER 2022-12-16 10:16 | Outpatient (CLI) | payer MEDICARE, BC, SELFPAY | END 2022-12-16 10:17 | disposition home or self-care (01) | LOC: NFLDREF 15:32 | PROVIDERS: PCP Family Medicine; Referring Provider Family Medicine; Visit Provider Family Medicine | DX: Z00.00 Encounter for general adult medical examination without abnormal findings (principal); D50.9 Iron deficiency anemia, unspecified; R03.0 Elevated blood-pressure reading, without diagnosis of hypertension; M85.80 Other specified disorders of bone density and structure, unspecified site; Z13.6 Encounter for screening for cardiovascular disorders | CPT/HCPCS: 80053; 80061; 82306 ==

== ENCOUNTER 2023-03-20 09:30 | Outpatient (CLI) | payer MEDICARE, BC, SELFPAY | END 2023-03-20 09:31 | disposition home or self-care (01) | LOC: NFLDREF 03-22 07:30 | PROVIDERS: PCP Family Medicine; Referring Provider Family Medicine; Visit Provider Family Medicine | DX: D50.9 Iron deficiency anemia, unspecified (principal); Z79.1 Long term (current) use of non-steroidal anti-inflammatories (NSAID) | CPT/HCPCS: 80053; 82728 ==

== ENCOUNTER 2023-04-06 09:55 | Outpatient (CLI) | payer MEDICARE, BC, SELFPAY ==
--- NOTE | 2023-04-06 10:15 | CRLHL7_ITS ---
For Patients: As a result of the Century Cures Act, medical imaging exams and procedure reports are released immediately into your electronic medical record. You may view this report before your referring provider. If you have questions, please contact your health care provider. BILATERAL SCREENING MAMMOGRAM WITH COMPUTER-AIDED DETECTION TECHNIQUE: CC and MLO views were obtained. These mammographic images have been obtained using full-field digital technique. These mammographic images were interpreted with the benefit of computer-aided detection. COMPARISON FILM: 04/05/22, 03/18/21, 03/16/20. FINDINGS: There are scattered areas of fibroglandular density IMPRESSION: There is no radiographic evidence for malignancy. ASSESSMENT: BI-RADS Category 2: Benign RECOMMENDATION: Routine screening mammogram in 1 year. A lay language report of this examination will be provided to the patient. Job Martinez M.D. Diagnostic Radiologist [email or web address] [place]/Dictated by: Job Martinez MD @ 04/11/2023 12:51:00 PM (Electronically Signed)
== END 2023-04-06 09:56 | disposition home or self-care (01) ==
LOC: MAMMO 09:56
PROVIDERS: PCP Family Medicine; Visit Provider Family Medicine
DX: Z12.31 Encounter for screening mammogram for malignant neoplasm of breast (principal)
CPT/HCPCS: 77067

== ENCOUNTER 2023-06-20 10:15 | Outpatient (CLI) | payer MEDICARE, BC, SELFPAY | END 2023-06-20 10:16 | disposition home or self-care (01) | LOC: NFLDREF 07-04 11:34 | PROVIDERS: PCP Family Medicine; Referring Provider Family Medicine; Visit Provider Family Medicine | DX: G89.29 Other chronic pain (principal); Z79.1 Long term (current) use of non-steroidal anti-inflammatories (NSAID); Z86.2 Personal history of diseases of the blood and blood-forming organs and certain disorders involving the immune mechanism | CPT/HCPCS: 80053 ==

== ENCOUNTER 2023-08-21 10:00 | Outpatient (CLI) | payer MEDICARE, BC, SELFPAY ==
--- OUTSIDE RECORDS SUMMARY | 2023-08-23 07:24 | XMS_ITS | Referral Summary ---
Author Name Unknown Organization [facility] Address [address] [place] [address] Care Team Providers Care Coater Slate Name Role Phone Unavailable Primary Care Provider Unavailabl e Source Comments Patient records contain information from all sites at [facility]. For routine questions regarding patient records, call [phone] during business hours, M-F 8:00 AM - 5:00 PM Central Time. Record requests for emergency care only can be directed to [phone] at any time.[facility] Allergies Active Allergy Reactions Criticality Noted Date Comments Sulfa (Sulfonamide Antibiotics) Rash High 03/13/2007 rash from a sulfa cream Medications Medication Sig Dispensed Refills Start Date End Date Status valACYclovir (VALTREX) 1000 mg tablet As Directed 07/09/2020 Active triamcinolone (KENALOG) 0.1 % ointment Twice A Day 01/27/2021 Active traMADoL (ULTRAM) 50 mg tablet Qhs as needed 05/14/2021 Active sertraline (ZOLOFT) 100 mg tablet Take 100 mg by mouth daily. 07/04/2021 Active Vitron-C 65 mg iron- [address] tablet Take 1 tablet by mouth daily. 06/02/2021 Active esomeprazole (NexIUM) [address] capsule Daily 04/18/2007 Active cholecalciferol, vitamin D3, 25 mcg (1,000 Unit) tablet Daily 02/20/2018 Activ e Social History Tobacco Use Types Packs/Day Years Used Date Smoking Tobacco: Never Assessed Nutrition Answer Date Recorded Nutrition: EVOO Fat Source Unknown 06/03 Nutrition: Servings of Fruits/Vegetables per Day Not on file 06/03/2021 Dental Answer Date Recorded Dental: Regular Dentist Unknown 02/17/20 22 Sex and Gender Information Value Date Recorded Sex Assigned at Not on file Gender Identity Not on file Sexual Orientation Not on file Last Filed Vital Signs Vital Sign Reading Time Taken Comments Blood Pressure 135/76 08/30/2021 12:41 PM CDT Pulse 84 08/30/2021 12:41 PM CDT Temperature - - Respiratory Rate - - Oxygen Saturation - - Inhaled Oxygen Concentration - - Weight 71.1 kg (156 lb 12 oz) 08/30/2021 12:41 P M CDT Height - - Body Mass Index - - Plan of Treatment Not on file
--- OUTSIDE RECORDS SUMMARY | 2023-08-23 07:24 | XMS_ITS ---
Author Name Unknown Organization [facility] Address [address] [place] [address] Care Team Providers Care Plastering Contractor Name Role Phone Unavailable Unavailable Unavailable Surgery Details Not on file Complications Check Surgery Details section. Procedure Estimated Blood Loss Check Surgery Details section. Procedure Findings Check Surgery Details section. Procedure Specimens Taken Check Surgery Details section.
--- OUTSIDE RECORDS SUMMARY | 2023-08-23 07:24 | XMS_ITS | Clinical Summary ---
Author Name Unknown Organization [facility] Address [address] [place] [address] Care Team Providers Care Salesperson Furniture Name Role Phone Unavailable Primary Care Provider Unavailabl e Source Comments Patient records contain information from all sites at [facility]. For routine questions regarding patient records, call [phone] during business hours, M-F 8:00 AM - 5:00 PM Central Time. Record requests for emergency care only can be directed to [phone] at any time.[facility] Allergies Active Allergy Reactions Criticality Noted [...] Date Last Done Comments Bone Density Scan (Osteoporo sis Screen) 1949 CT Colonography 1949 Cologuard 1949 Colonoscopy 1949 Colorectal Cancer Screening 1949 FIT 1949 Fasting Glucose for Diabetes Screening 1949 Hepatitis C Screening 1950 Mammogram 1950 Depression Screening (Annual PHQ-2) 04/17/2023 Fall Risk Screen (Annual) 04/17/2023 COVID-19 Vaccine (4 - 2022-2 4 season) 2023 02/03/2023, 02/08/2022, 01/21/2021 DTaP,Tdap,and Td Vaccines (3 - Td or Tdap) 12/16/2031 12/15/2021, 06/23/2010, 01/17/2006 Pneumococcal vaccine (65+ years) Completed 03/23/20 16, 01/15/2015 Zoster Vaccines Completed 12/19/2018, 0704/2018, 10/08/2018, Additional history exists Influenza Vaccine Completed 01/16/2023, , 01/13/2021, Additional history exists
--- OUTSIDE RECORDS SUMMARY | 2023-08-23 07:24 | XMS_ITS | Clinical Summary ---
Author Name Unknown Organization [facility] Address [place], [place] [address] Care Team Providers Care Senior Mortgage Underwriter Name Role Phone Ruby Chiang MD Primary Care Provider Curt lable Allergies Active Allergy Reactions Criticality Noted Date Comments Sulfa (Sulfonamide Antibiotics) 03/13/2007 rash from a sulfa cream Medications Medication Sig Dispensed Refills Start Date End Date Status NEXIUM 40 MG CAP take 1 capsule (40 mg) by oral route once daily 90 3 04/18/2007 Active cyclobenzaprine (FLEXERIL) 10 mg tablet Take 1 tablet by mouth every 8 hours if needed for Muscle Spasm. 36 tablet 2 05/17/2010 Active miscellaneous medical supply (CERVICAL TRACTION) [facility] As directed. Joe cervical home traction 1 Units 0 11/15/2010 Active Ciclopirox 0.77 % gelIndications:[place] tophytosis of nail Apply to affected toenails for 6-12 months once daily. 1 jar 1 03/13/2013 Active sertraline (ZOLOFT) 50 mg tablet Take 1 tablet by mouth once daily. 0 05/07/2015 Active capsaicin-methyl bradley-menthol (NEW TEROCIN) 0.025-25-10 % lotionIndications:ba ck pain Apply topically to affected area(s). Indications: BACK PAIN 10 mL 0 05/07/2015 Active Active Problems Problem Noted Date Diagnosed Date Degeneration of lumbar or lumbosacral interverte bral disc 07/23/2008 Bursitis of hip 07/23/2008 Onychomycosis 04/08/2008 Immunizations Name Administration Dates Next Due AMB Influenza, IIV3 (Age >=3 years)(Flu [facility]) 02/13/2012 Social History Tobacco Use Types Packs/Day Years Used Date Smoking Tobacco: Never Smokeless Tobacco: Never Tobacco Cessation:Counseling Given: Yes Alcohol Use Standard Drinks/Week Comments Not Asked 0 (1 standard drink = 0.6 oz pur e alcohol) Sex and Gender Information Value Date Recorded Sex Assigned at Not on file Gender Identity Not on file Sexual Orientation Not on file Obstetrics History Last Filed Vital Signs Vital Sign Reading Time Taken Comments Blood Pressure 136/73 05/07/2015 2:20 PM CHECKER IN Pulse 98 05/07/2015 2:20 PM CHECKER IN Temperature 36.7 ??C (98 ??F) 05/07/2015 2:20 PM CHECKER IN Respiratory Rate - - Oxygen Saturation 98% 05/07/2015 2:20 PM CHECKER IN Inhaled Oxygen Concentration - - Weight 76.8 kg (169 lb 6 oz) 05/07/2015 2:20 PM CHECKER IN Height 168 cm (5' 6.14) 05/07/2015 2:20 PM CHECKER IN Body Mass Index 27.22 05/07/2015 2:20 PM CHECKER IN Plan of Treatment Health Maintenance Due Date Last Done Comments Tdap 1960 Depression screening for age 12+ 1961 Hepatitis C screening for age 18-79 07/01/1967 Tetanus booster 1969 Lipids for age 45-75 1994 Zoster (shingles) series for age 50+ (1 of 2) 07/01/1999 Mammogram for age 45-75 06/03/2009 06/03/2008, 02/27 DEXA/DXA scan for age 65+ 2014 Pneumococcal series for age 65+ (1 of 1 - PCV) 2014 BMI (ht and wt on same day) for age 18+ 05/07/2016 05/07/2015 Colonoscopy through age 75 03/22/202203/22, 03/21/2012, 03/13/2007 COVID-19 vaccine series ( season) 2022 Influenza for age 65+ 12/17/2023 02/13/2012 Procedures Procedure Name Priority Date/Time Associated Diagnosis Comments SCAN-COLONOSCOPY 03/22/2012 12:0 0 AM CHECKER IN XR MAMMO BILAT SCREEN FFDM (IA) Routine 06/03/2008 11:02 AM CHECKER IN Other Screening Mammogram from Last 3 Months or Most Recently Relevant to Health Maintenance Results * SCAN-COLONOSCOPY (03/22/2012 12:00 AM CHECKER IN) Narrative 03/22/2012 12:00 AM CHECKER IN Procedure Note Scanner - 03/22/2012 12:00 AM CST Scanner OTHER * XR MAMMO BILAT SCREEN FFDM (06/03/2008 11:02 AM CHECKER IN) MAMMOGRAM ACR 2 Benign Finding Anatomical Region Laterality Modality BREASTS, Breast Left, Breast Right Bilateral Mammography 06/03/2008 11:0 2 AM CHECKER IN Narrative 06/03/2008 3:09 PM CHECKER IN Benign findings noted on mammogram. ??For complete description of the mammographic examination, please reference scanned document within [facility]. ?? We are mailing a results letter to the patient. ACR 2 Benign Finding Procedure Note Edgar Whalen MD - 06/03/2008 Benign findings noted on mammogram. For complete description of themammographic examination, please reference scanned document within[facility]. We are mailing a results letter to the patient. ACR 2 Benign Finding Natacha Reddy MD MAMMO from Last 3 Months or Most Recently Relevant to Health Maintenance Care Teams Senior Mortgage Underwriter Relationship Specialty Start Date End Date Ruby Chiang MD PCP - General Family Practice 11/30/11
== END 2023-08-21 10:01 | disposition home or self-care (01) ==
LOC: NFLDREF 08-23 07:21
PROVIDERS: PCP Family Medicine; Referring Provider Family Medicine; Visit Provider Family Medicine
DX: Z13.228 Encounter for screening for other metabolic disorders (principal); Z79.1 Long term (current) use of non-steroidal anti-inflammatories (NSAID)
CPT/HCPCS: 80053

== ENCOUNTER 2023-08-25 15:15 | Outpatient (RCR) | payer MEDICARE, BC, SELFPAY ==
--- NOTE | 2023-06-23 12:09 | PT.OPEX ---
PT [place] Outpatient Eval PT [facility] Outpatient Eval Start: 06/23/23 08:40 Freq: Status: Active Protocol: Document 06/23/23 08:40 KLV (Rec: 06/23/23 12:05 KLV [id number]) E-signed By Bailey Ochoa, PT Physical Therapy Outpatient Evaluation Insurance Information Recert Due Date 09/17/23 Insurance Name Medicare B,Blue Cross/Blue Shield Medical Diagnosis Right knee pain Treating Diagnosis Right knee pain, limited knee ROM, knee/hip weakness Referring MD Chatterjee Subjective Subjective Shantell reports to PT with primary complaint of right knee pain with initial onset about 2 months ago without any known injury that occurred. Pain is localized to lateral aspect of the knee that feels more superficial than deep. Currently having pain with stair negotiation and long distance walking. She would like to control/reduce the pain and know what she can do to hopefully be able to garden this spring/summer. She has not tried anything yet for this condition. PMH: arthritis Pain Comments -10/24 Date of Last Physician Visit 06/06/23 Current Work Status Retired Precautions Therapy Limitations/Systems Review Not Limited Objective Other/Pertinent Objective Knee ROM: -R 0-125 -L 0-132 Dilma test: + R>L Palpation: increased tone throughout R ITB, distal vastus lateralis Rc test: R + psoas and rectus femoris SL balance: able to hold ~10 sec B with trendelenburg stance LE Strength (R/L): -Knee Ext: R: 4/5, L: 4+/5 -Knee Flex: R: 5-/5, L: 5-/5 -Hip Abd: R: 3+/5, L: 3+/5 -Hip Ext: R: 4/5, L: 4+/5 -Hip Flx: R: 4/5, L: 4+/5 Sit to stand: valgus eccentric >concentric and R>L Functional Test Performed & Score LEFS: 41/80 Assessment Assessment/Impression Patient is a 72 year old female presenting to physical therapy for evaluation and treatment of lateral right knee pain. Patient presents with stiffness through quad and ITB, quad and proximal hip weakness. These impairments are limiting the patients ability to negotiate stairs, walk longer distances and bend down/kneel to be able to garden. Patient appears motivated to participate in PT and presents with good prognosis to improve mobility, strength, proprioception and return to functional activities with skilled physical therapy intervention. Primary Functional Limitations negotiate stairs, walk longer distances and bend down/kneel to be able to garden Plan of Care Rehabilitation Potential Good Physical Therapy Goals In 6 weeks (08/04/23) Pt will demonstrate WNL and equal knee ROM with 0/10 pain in order to don shoes/socks and comfortably get up/down from the ground to garden Pt will be able to negotiate stairs with reciprocal gait and <1/10 in order to perform ADLs In 10 weeks (09/01/23) Patient will squat with pain levels < 1/10 displaying good control in order to garden this spring and summer Pt will exhibit 9 pt improvement in LEFS Outcome measure to demonstrate functional improvement and progress towards goals. Pt will demonstrate at least 4 +/5 strength MMT in quad, glut max & glut med to improve dynamic control with SLS activities and gait. Treatment Plan/Direct Interventions Gait Training,Ice/Cold/ Vasopneumatic,Joint Mobilization,Manual Therapy, Neuromuscular Re-ed,Self-Care/ Home Management,Therapeutic Activities,Therapeutic Exercises Frequency/Duration Recheck in 3-4 weeks Patient Will Be Discharged From Therapy Completion of LTG(s), Independent w/HEP, Independently Progressing Evaluation Billing Untimed Code Treatment Minutes 25 Complexity Low Certification Information Initial Certification Date 06/23/23 Ending Certification Date 09/17/23 Provider Signature Shows Agreement With POC & Medical Necessity Physician Signature & Date Requested Please Sign/Date Here Physician Comment/Change : Physician NPI Number #
== END 2023-08-25 16:08 | disposition home or self-care (01) ==
PROVIDERS: PCP Family Medicine; Visit Provider Family Medicine
DX: M25.561 Pain in right knee (principal); R29.898 Other symptoms and signs involving the musculoskeletal system; Z74.09 Other reduced mobility; Z51.89 Encounter for other specified aftercare
CPT/HCPCS: 97110; 97140; 97161

== ENCOUNTER 2024-01-08 10:10 | Outpatient (CLI) | payer MEDICARE, BC, SELFPAY ==
--- OUTSIDE RECORDS SUMMARY | 2024-01-12 03:17 | XMS_ITS | Clinical Summary ---
Author Organization [email or web address] Address [place], [place] [address] Care Team Providers Care Washcloth Folder Name Role Phone Ruby Chiang MD Primary [...] 05/17/2010 Active miscellaneous medical supply (CERVICAL TRACTION) [facility] As directed. Joe cervical home traction 1 Units 0 11/15/2010 Active Ciclopirox 0.77 % gelIndications:[place] tophytosis of nail Apply to affected toenails [...] Comments Blood Pressure 136/73 05/07/2015 2:20 PM SERVICE DELIVERY ANALYST Pulse 98 05/07/2015 2:20 PM SERVICE DELIVERY ANALYST Temperature 36.7 ??C (98 ??F) 05/07/2015 2:20 PM SERVICE DELIVERY ANALYST Respiratory Rate - - Oxygen Saturation 98% 05/07/2015 2:20 PM SERVICE DELIVERY ANALYST Inhaled Oxygen Concentration - - Weight 76.8 kg (169 lb 6 oz) 05/07/2015 2:20 PM SERVICE DELIVERY ANALYST Height 168 cm (5' 6.14) 05/07/2015 2:20 PM SERVICE DELIVERY ANALYST Body Mass Index 27.22 05/07/2015 2:20 PM SERVICE DELIVERY ANALYST Plan of Treatment Health Maintenance Due Date [...] 03/21/2012, 03/13/2007 COVID-19 vaccine series ( season) 2023 Influenza for age 65+ 12/17/2023 02/13/2012 Procedures Procedure Name Priority Date/Time Associated Diagnosis Comments SCAN-COLONOSCOPY 03/22/2012 12:0 0 AM SERVICE DELIVERY ANALYST XR MAMMO BILAT SCREEN FFDM (IA) Routine 06/03/2008 11:02 AM SERVICE DELIVERY ANALYST Other Screening Mammogram from Last 3 Months or Most Recently Relevant to Health Maintenance Results * SCAN-COLONOSCOPY (03/22/2012 12:00 AM SERVICE DELIVERY ANALYST) Narrative 03/22/2012 12:00 AM SERVICE DELIVERY ANALYST Procedure Note Scanner - 03/22/2012 12:00 AM CST Scanner OTHER * XR MAMMO BILAT SCREEN FFDM (06/03/2008 11:02 AM SERVICE DELIVERY ANALYST) MAMMOGRAM ACR 2 Benign Finding Anatomical Region Laterality Modality BREASTS, Breast Left, Breast Right Bilateral Mammography 06/03/2008 11:0 2 AM SERVICE DELIVERY ANALYST Narrative 06/03/2008 3:09 PM SERVICE DELIVERY ANALYST Benign findings noted on mammogram. ??For complete [...] Recently Relevant to Health Maintenance Care Teams Washcloth Folder Relationship Specialty Start Date End Date Ruby Chiang MD PCP - General Family Practice 11/30/11
== END 2024-01-08 10:11 | disposition home or self-care (01) ==
LOC: NFLDREF 01-12 03:15
PROVIDERS: PCP Family Medicine; Referring Provider Family Medicine; Visit Provider Family Medicine
DX: D72.820 Lymphocytosis (symptomatic) (principal); Z86.2 Personal history of diseases of the blood and blood-forming organs and certain disorders involving the immune mechanism; M81.0 Age-related osteoporosis without current pathological fracture; E78.5 Hyperlipidemia, unspecified
CPT/HCPCS: 80053; 80061; 82306; 82728; 84443

== ENCOUNTER 2024-01-31 09:21 | Outpatient (CLI) | payer MEDICARE, BC, SELFPAY ==
--- OUTSIDE RECORDS SUMMARY | 2024-01-31 09:24 | XMS_ITS | Clinical Summary ---
Author Organization [facility] Address [place], [place] [address] Care Team Providers Care Car Electronics Installer Name Role Phone Ruby Chiang MD Primary [...] 05/17/2010 Active miscellaneous medical supply (CERVICAL TRACTION) [facility] [place] As directed. Joe cervical home traction 1 Units 0 11/15/2010 Active Ciclopirox 0.77 % gelIndications:[place] tophytosis of nail Apply to affected toenails [...] Comments Blood Pressure 136/73 05/07/2015 2:20 PM PODIATRIC SURGEON Pulse 98 05/07/2015 2:20 PM PODIATRIC SURGEON Temperature 36.7 ??C (98 ??F) 05/07/2015 2:20 PM PODIATRIC SURGEON Respiratory Rate - - Oxygen Saturation 98% 05/07/2015 2:20 PM PODIATRIC SURGEON Inhaled Oxygen Concentration - - Weight 76.8 kg (169 lb 6 oz) 05/07/2015 2:20 PM PODIATRIC SURGEON Height 168 cm (5' 6.14) 05/07/2015 2:20 PM PODIATRIC SURGEON Body Mass Index 27.22 05/07/2015 2:20 PM PODIATRIC SURGEON Plan of Treatment Health Maintenance Due Date [...] Diagnosis Comments SCAN-COLONOSCOPY 03/22/2012 12:0 0 AM PODIATRIC SURGEON XR MAMMO BILAT SCREEN FFDM (IA) Routine 06/03/2008 11:02 AM PODIATRIC SURGEON Other Screening Mammogram from Last 3 Months or Most Recently Relevant to Health Maintenance Results * SCAN-COLONOSCOPY (03/22/2012 12:00 AM PODIATRIC SURGEON) Narrative 03/22/2012 12:00 AM PODIATRIC SURGEON Procedure Note Scanner - 03/22/2012 12:00 AM CST Scanner OTHER * XR MAMMO BILAT SCREEN FFDM (06/03/2008 11:02 AM PODIATRIC SURGEON) MAMMOGRAM ACR 2 Benign Finding Anatomical Region Laterality Modality BREASTS, Breast Left, Breast Right Bilateral Mammography 06/03/2008 11:0 2 AM PODIATRIC SURGEON Narrative 06/03/2008 3:09 PM PODIATRIC SURGEON Benign findings noted on mammogram. ??For complete [...] Recently Relevant to Health Maintenance Care Teams Car Electronics Installer Relationship Specialty Start Date End Date Ruby Chiang MD PCP - General Family Practice 11/30/11
--- NOTE | 2024-01-31 09:30 | CRLHL7_ITS ---
For Patients: As a result of the Century Cures Act, medical imaging exams and procedure reports are released immediately into your electronic medical record. You may view this report before your referring provider. If you have questions, please contact your health care provider. DXA BONE MINERAL DENSITY STUDY Reason for exam: Follow-up osteopenia. Current height (in): 64.5. Weight (lb): 154. Menopause age: 49. Ethnicity: White. 1. Have you had a previous hip or vertebral fracture? No. 2. Have you had any fractures during your adult life which did not result from significant trauma (e.g., auto accident)? No. 3. Did either of your parents have a hip fracture? Yes. 4. Do you smoke? No. 5. Have you ever taken Glucocorticoids? No. 6. Do you have rheumatoid arthritis? No. 7. Do you have secondary osteoporosis? No. 8. Do you drink 3 or more alcoholic drinks per day? No. 9. Are you being treated for osteoporosis? No. 10. Have you ever taken any of the following medications: Actonel, Evista, Fosamax, Miacalcin, Reclast, Boniva, Forteo, HRT (i.e., estrogen/hormone therapy), Protelos, Prolia, Vitamin D, Calcium, other ??? please specify. ANSWER: Yes, vitamin D and calcium. 11. Do you have any of the following medical conditions: Anorexia or bulimia, asthma or emphysema, end stage renal disease, hyperparathyroidism, any seizure disorders, cancer, inflammatory bowel diseases, hysterectomy, other ??? please specify. ANSWER: No. 12. What was your maximum height (inches)? 65. 13. Do you perform weight bearing exercise regularly? No. 14. Do you regularly consume dairy products? Yes. 15. Do you drink caffeinated beverages? Yes. 16. At what age did your period start? 12. 17. Are you premenopausal? No. 18. How many full-term pregnancies have you had? 2. 19. Have you ever missed your period for more than 6 months in a row (not including or menopause)? No. TECHNIQUE: Bone mineral density study was performed using the [employer]. FINDINGS: The results of the study expressed as bone mineral density (BMD) are as follows: Lumbar spine L1 to L3: BMD: 0.876 g/cm2. T-score: -1.3. Z-score: 1.0 Neck Left: BMD: 0.666 g/cm2. T-score: -1.6. Z-score: 0.4 Right: BMD: 0.598 g/cm2. T-score: -2.3. Z-score: -0.2 Total Left: BMD: 0.819 g/cm2. T-score: -1.0. Z-score: 0.7 Right: BMD: 0.749 g/cm2. T-score: -1.6. Z-score: 0.2 IMPRESSION: Osteopenia. *Comparison exams done prior to 09/2019 were performed on different unit, [employer]. COMPARISON: Compared with scan of 07/22/2020, the bone mineral density has decreased by 1.2 percent at the spine and decreased by 1.6 percent at the hip. Compared with scan of 03/02/2017, the bone mineral density has decreased by 1.3 percent at the spine and increased by 3.9 percent at the hip. FRAX 10-year Fracture Risk Major Osteoporotic Fracture: 26% Hip Fracture: 16% Reported Risk Factors: [place] () Neck BMD=0.598, BMI=26.0, parental fracture. KELIN CARLTON M.D. Transcribed: 3:16 p.m. [email or web address]/Dictated by: Kelin Carlton MD @ 02/02/2024 9:48:00 AM (Electronically Signed)
== END 2024-01-31 09:22 | disposition home or self-care (01) ==
LOC: RAD 09:22
PROVIDERS: PCP Family Medicine; Visit Provider Family Medicine
DX: M85.89 Other specified disorders of bone density and structure, multiple sites (principal)
CPT/HCPCS: 77080

== ENCOUNTER 2024-04-19 08:58 | Outpatient (CLI) | payer MEDICARE, BC, SELFPAY ==
--- OUTSIDE RECORDS SUMMARY | 2024-04-18 16:46 | XMS_ITS | Clinical Summary ---
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 36 tablet 2 1 Active miscellaneous medical supply (CERVICAL TRACTION) [facility] As directed. Joe cervical home traction 1 Units 0 1 Active Ciclopirox 0.77 % gelIndications: Dermatophytosis of nail Apply to affected toenails for 6-12 months once daily. 1 jar 1 3 Active sertraline (ZOLOFT) 50 mg tablet Take 1 tablet by mouth once daily. 0 6 Active capsaicin-methy l bradley-menthol (NEW TEROCIN) 0.025-25-10 % lotionIndicatio ns:back pain Apply topically to affected area(s). Indications: BACK PAIN 10 mL 0 6 Active Active Problems Problem Noted Date Diagnosed [...] drink = 0.6 oz pur e alcohol) Comments Unknown Sex and Gender Information Value Date Recorded Sex Assigned at Not on file Legal Sex Female 6:23 AM [employer] Gender Identity Not on file Sexual Orientation Not on file Obstetrics History Last Filed Vital Signs Vital Sign Reading Time Taken Comments Blood Pressure 136/73 05/07/2015 2:20 PM [employer] Pulse 98 05/07/2015 2:20 PM [employer] Temperature 36.7 C (98 F) 05/07/2015 2:20 PM [employer] Respiratory Rate - - Oxygen Saturation 98% 05/07/2015 2:20 PM [employer] Inhaled Oxygen Concentration - - Weight 76.8 kg (169 lb 6 oz) 05/07/2015 2:20 PM [employer] Height 168 cm (5' 6.14) 05/07/2015 2:20 PM [employer] Body Mass Index 27.22 05/07/2015 2:20 PM [employer] Plan of Treatment Health Maintenance Due Date Last Done Comments Tdap 1960 Depression screening for age 12+ 1961 Hepatitis C screening for age 18-79 07/01/1967 Tetanus booster 1969 Lipids for age 45-75 1994 Pneumococcal series for age 50+ (1 of 1 - PCV) 07/01/1999 Zoster (shingles) series for age 50+ (1 of 2) 07/01/1999 Mammogram for age 45-75 06/03/2009 06/03/2008, 02/27 DEXA/DXA scan for age 65+ 2014 BMI (ht and wt on same day) for age 18+ 05/07/2016 05/07/2015 Colonoscopy through age 75 03/22/202203/22, 03/21/2012, 03/13/2007 COVID-19 vaccine series ( - 2023- season) 2023 Influenza for age 65+ 12/17/2023 02/13/2012 RSV vaccine for adults or pr egnancy (1 - 1-dose 75+ series) 2024 Procedures Procedure Name Priority Date/Time Associated Diagnosis Comments SCAN-COLONOSCOPY 03/22/2012 12:0 0 AM [employer] XR MAMMO BILAT SCREEN FFDM (IA) Routine 06/03/2008 11:02 AM [employer] Other Screening Mammogram from Last 3 Months or Most Recently Relevant to Health Maintenance Results * SCAN-COLONOSCOPY (03/22/2012 12:00 AM COIL [employer]) Narrative 03/22/2012 12:00 AM [employer] Procedure Note Scanner - 03/22/2012 12:00 AM CST us Scanner OTHER Final Result * XR MAMMO BILAT SCREEN FFDM (06/03/2008 11:02 AM [employer]AP) MAMMOGRAM ACR 2 Benign Finding Anatomical Region Laterality Modality BREASTS, Breast Left, Breast Right Bilateral Mammography 06/03/2008 11:0 2 AM [employer] Narrative 06/03/2008 3:09 PM [employer] Benign findings noted on mammogram. For complete description of the mammographic examination, please reference scanned document within [facility]. We are mailing a results letter to the patient. ACR 2 Benign Finding Procedure Note Edgar Whalen MD - 06/03/2008 Benign findings noted on mammogram. For complete description of themammographic examination, please reference scanned document [facility]. We are mailing a results letter to the patient. ACR 2 Benign Finding Natacha Reddy MD MAMMO Final Result from Last 3 Months or Most Recently Relevant to Health Maintenance Insurance [facility] MEDICARE [place] ONLY Care Teams Crude Oil Driver Relationship Specialty Start Date End Date Ruby Chiang MD PCP - General Family Practice 11/30/11
--- NOTE | 2024-04-19 09:15 | CRLHL7_ITS ---
For Patients: As a result of the Century Cures Act, medical imaging exams and procedure reports are released immediately into your electronic medical record. You may view this report before your referring provider. If you have questions, please contact your health care provider. BILATERAL SCREENING MAMMOGRAM WITH COMPUTER-AIDED DETECTION AND TOMOSYNTHESIS TECHNIQUE: CC and MLO views were obtained. These mammographic images have been obtained using full-field digital technique. These mammographic images were interpreted with the benefit of computer-aided detection. Breast tomosynthesis was used in this interpretation. COMPARISON FILM: 04/06/23, 04/05/22, 03/18/21. FINDINGS: There are scattered areas of fibroglandular density. IMPRESSION: There is no radiographic evidence for malignancy. ASSESSMENT: BI-RADS Category 1: Negative RECOMMENDATION: Routine screening mammogram in 1 year. A lay language report of this examination will be provided to the patient. JOB BACON M.D. Diagnostic Radiologist [email or web address] Transcribed: 1:[address]/Dictated by: Job Bacon MD @ 04/19/2024 10:24:00 AM (Electronically Signed)
== END 2024-04-19 08:59 | disposition home or self-care (01) ==
PROVIDERS: PCP Family Medicine; Visit Provider Family Medicine
DX: Z12.31 Encounter for screening mammogram for malignant neoplasm of breast (principal)
CPT/HCPCS: 77063; 77067

== ENCOUNTER 2024-06-27 10:10 | Outpatient (CLI) | payer MEDICARE, BC, SELFPAY | END 2024-06-27 10:11 | disposition home or self-care (01) | LOC: NFLDREF 07-01 01:17 | PROVIDERS: PCP Family Medicine; Referring Provider Family Medicine; Visit Provider Family Medicine | DX: E78.5 Hyperlipidemia, unspecified (principal); Z79.1 Long term (current) use of non-steroidal anti-inflammatories (NSAID) | CPT/HCPCS: 80053 ==

== ENCOUNTER 2025-01-13 09:55 | Outpatient (CLI) | payer MEDICARE, BC, SELFPAY | END 2025-01-13 09:56 | disposition home or self-care (01) | LOC: NFLDREF 01-14 14:43 | PROVIDERS: PCP Family Medicine; Referring Provider Family Medicine; Visit Provider Family Medicine | DX: Z86.2 Personal history of diseases of the blood and blood-forming organs and certain disorders involving the immune mechanism (principal); E78.5 Hyperlipidemia, unspecified; Z79.1 Long term (current) use of non-steroidal anti-inflammatories (NSAID); M85.89 Other specified disorders of bone density and structure, multiple sites | CPT/HCPCS: 80053; 80061; 82306; 82728 ==